=== PATIENT | male | born 1995 | race Caucasian/White ===

== ENCOUNTER 2022-01-14 17:57 | Emergency (ER) | payer OTHER ==
[~2022-01-14] VITALS: Ht 173 cm; Wt 108.0 kg
[~2022-01-14 17:57] MED LIST: SULF1TAB35 PO
[2022-01-14 18:09] VITALS: BP 139/71
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
[2022-01-14] MEDS ORDERED: CYCLOBENZAPRINE 10 MG (FLEXERIL) TAB PO SCH (19:00)
[2022-01-14] MEDS ORDERED: IBUPROFEN 800 MG (MOTRIN) TAB PO ONE (19:00)
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
[2022-01-14] MEDS ORDERED: METH-732 PO (19:27)
[2022-01-14] MEDS ORDERED: IBUP-1780 PO (19:27)
== END 2022-01-14 19:39 | disposition home or self-care (01) ==
LOC: EDUNIT# 17:57 → ER 18:00
DX: S06.0X0A Concussion without loss of consciousness, initial encounter (principal); S00.83XA Contusion of other part of head, initial encounter; R40.2410 Glasgow coma scale score 13-15, unspecified time; V89.2XXA Person injured in unspecified motor-vehicle accident, traffic, initial encounter
CPT/HCPCS: 70450; 71046; 72100; 72125